=== PATIENT | female | born 1960 | race Hispanic/Latino ===

== ENCOUNTER 2018-06-04 18:17 | Emergency (ER) | payer OTHER ==
[2018-06-04] MEDS ORDERED: Dexamethasone 4 mg/ml Vial ONE (19:05)
== END 2018-06-04 19:16 | disposition home or self-care (01) ==
LOC: ERS 18:17
DX: L30.9 Dermatitis, unspecified (principal); I10 Essential (primary) hypertension; E11.9 Type 2 diabetes mellitus without complications; Z79.84 Long term (current) use of oral hypoglycemic drugs; Z79.891 Long term (current) use of opiate analgesic; Z79.899 Other long term (current) drug therapy
CPT/HCPCS: 96372; J1100

== ENCOUNTER 2018-07-25 19:25 | Emergency (ER) | payer OTHER ==
[2018-07-25] MEDS ORDERED: Ketorolac Tromethamine 60 MG/2 ML VIAL ONE (20:00)
[2018-07-25] MEDS ORDERED: Dexamethasone 10 MG/ML VIAL ONE (20:00)
== END 2018-07-25 20:23 | disposition home or self-care (01) ==
LOC: ERS 19:25
DX: M54.32 Sciatica, left side (principal); E11.9 Type 2 diabetes mellitus without complications; I10 Essential (primary) hypertension; Z79.84 Long term (current) use of oral hypoglycemic drugs; Z79.899 Other long term (current) drug therapy
CPT/HCPCS: 96372; J1100; J1885

== ENCOUNTER 2018-08-20 13:26 | Emergency (ER) | payer OTHER | END 2018-08-20 14:45 | disposition home or self-care (01) | LOC: ERS 13:26 | DX: K04.7 Periapical abscess without sinus (principal); E11.9 Type 2 diabetes mellitus without complications; I10 Essential (primary) hypertension; E78.00 Pure hypercholesterolemia, unspecified; Z79.84 Long term (current) use of oral hypoglycemic drugs; Z79.899 Other long term (current) drug therapy | CPT/HCPCS: 99282 ==

== ENCOUNTER 2018-09-13 06:59 | Outpatient (CLI) | payer OTHER ==
--- NOTE | 2018-09-13 09:26 | MRI ---
MRI OF THE LUMBAR SPINE WITHOUT CONTRAST: Date: 09-13-18 History: Lumbar radiculopathy, left buttock, hip and leg pain. Technique: Multiplanar, multisequence MR imaging of the lumbar spine obtained without contrast. FINDINGS: The sagittal STIR imaging demonstrates no focal area of osseous marrow edema. There is no lumbar ante rolisthesis or retrolisthesis present. Assuming five lumbar type vertebral bodies, the conus medullar is terminates at the T12-L1 level. T12-L1: No central canal or neural foraminal stenosis. Mild bilateral facet hypertrophy. L1-2: Mild disc space narrowing. Disc desiccation and mild anterior osteophyte formation. No signific ant central canal or neural foraminal stenosis. L2-3: There is disc space narrowing, disc desiccation and mild disc bulge. There is a small disc prot rusion in the left foraminal region. There is no significant central canal or neural foraminal stenos is. L3-4: There is mild bilateral facet hypertrophy. Intervertebral disc height and signal intensity with in normal limits with no significant central canal or neural foraminal stenosis. L4-5: Mild bilateral facet hypertrophy. Small foraminal protrusion on the left. There is mild left ne ural foraminal stenosis. No central canal or right neural foraminal stenosis. L5-S1: There is a small disc protrusion in the left paracentral region with no significant central ca nal or neural foraminal stenosis. The imaged retroperitoneal structures demonstrate no acute findings. There is a vague area of relative decreased signal within the L3 vertebral body, hypointense on T1 an d T2 weighted imaging, with no correlate seen on STIR imaging. This may represent heterogeneity of th e bone marrow signal intensity in this region, but a vertebral body lesion cannot be fully excluded a t the L3 level. Of note, no recent comparison imaging is available. IMPRESSION: 1. Relatively mild degenerative disc disease noted within the lumbar spine as detailed above. 2. Question lesion within L3 vertebral body measuring up to 2.5 cm as detailed above. Significance is uncertain but further imaging assessment is suggested. Recommend correlation with bone scan and CT e xamination. Code T POS: [facility]
--- NOTE | 2018-09-13 09:34 | RAD ---
TWO VIEWS LUMBAR SPINE: Date: 09-13-18 Comparison: None. History: Lumbar radiculopathy. FINDINGS: At L1-2 there is disc space narrowing with anterior osteophyte formation. There is mild anterior oste ophyte formation at L2-3 and L3-4. No anterolisthesis noted. Minimal retrolisthesis at L1-2 and L2-3 in the 2-3 mm range present. Mild lower lumbar spine facet hypertrophy. No acute osseous abnormality. IMPRESSION: Degenerative changes. No acute osseous abnormality. POS: [facility] [place]
== END 2018-09-13 07:00 | disposition home or self-care (01) ==
LOC: BICMRI 06:59
PROVIDERS: ATTEND Orthopaedic Surgery
DX: M47.26 Other spondylosis with radiculopathy, lumbar region (principal); M51.16 Intervertebral disc disorders with radiculopathy, lumbar region
CPT/HCPCS: 72100; 72148

== ENCOUNTER 2020-12-15 15:34 | Emergency (ER) | payer OTHER ==
[2020-12-15 16:32] LABS: #Basophils 0.1 thou/uL (0.0-0.2); #Eosinphils 0.3 thou/uL (0.0-0.7); #Lymphocytes 3.4 thou/uL (1.20-3.40); #Monocytes 0.7 thou/uL (0.11-0.59); #Neutrophils 7.1 thou/uL (1.40-6.50); %Basophils 1.1 % (0.0-1.0); %Eosinophils 2.3 % (0.0-10.0); %Lymphocytes 29.1 % (21.0-51.0); %Monocytes 6.4 % (0.0-10.0); %Neutrophils 61.2 % (42.0-75.0); Hemoglobin 13.5 g/dL (12.0-16.0); Mean Corpuscular Hemoglobin 28.2 pg (27.0-31.0); Mean Corpuscular Volume 85.4 fL (78.0-98.0); Mean Platelet Volume 8.9 fL (7.4-10.4); Platelet Count 238 thou/uL (130-400); RBC Distribution Width 12.6 % (11.5-14.5); Red Blood Cell (RBC) Count 4.79 mill/uL (4.20-5.40); White Blood Cell (WBC) Count 11.5 thou/uL (4.8-10.8)
[2020-12-15 16:53] LABS: ALT (SGPT) 19 U/L (8-55); AST (SGOT) 21 U/L (5-34); Albumin 3.8 g/dL (3.4-4.8); Alkaline Phosphatase 120 U/L (40-110); Anion Gap 17 mmol/L (10-20); BUN (Urea Nitrogen) 20 mg/dL (9.8-20.1); Bilirubin, Total 0.3 mg/dL (0.2-1.2); Calc. Creatinine Clearance 0 mL/min (70-130); Calcium 9.3 mg/dL (7.8-10.44); Carbon Dioxide 20 mmol/L (23-31); Chloride 107 mmol/L (98-107); Globulin 3.1 g/dL (2.4-3.5); Glucose 98 mg/dL (80-115); Potassium 3.9 mmol/L (3.5-5.1); Protein, Total 6.9 g/dL (5.8-8.1); Sodium 140 mmol/L (136-145)
[2020-12-15 20:39] LABS: SARS-CoV-2 PCR by NAA Not Detected (NotDetected)
== END 2020-12-15 18:00 | disposition home or self-care (01) ==
LOC: ERS 15:34
DX: J18.9 Pneumonia, unspecified organism (principal); Z20.822 Contact with and (suspected) exposure to COVID-19; E11.9 Type 2 diabetes mellitus without complications; I10 Essential (primary) hypertension; E78.00 Pure hypercholesterolemia, unspecified; Z79.84 Long term (current) use of oral hypoglycemic drugs; Z79.82 Long term (current) use of aspirin; Z79.899 Other long term (current) drug therapy
CPT/HCPCS: 36415; 71045; 80053; 85025; 87635; U0003; U0005